=== PATIENT | male | born 1985 | race Caucasian/White ===

== ENCOUNTER 2016-09-02 07:48 | Day surgery (SDC) | payer OTHER ==
[~2016-09-02 07:48] MED LIST: Aloe Vera/Sodium Chloride Gel 14.1 GM Tube ONE; Lactated Ringers 1,000 ML IV SCH; Lidocaine 1% 50 ML MDV ONE; Lidocaine 2% 5 ML SDV ONE; Lidocaine 2% with EPINEPHrine 1:100,000 20 ML MDV ONE; Midazolam 1 MG/ML 2 ML SDV ONE; Oxymetazoline 0.05% Nasal Spray 15 ML Bottle ONE; Propofol 200 MG/20 ML SDV ONE; Rocuronium 10 MG/ML 10 ML Syringe ONE; Succinylcholine/Normal Saline 200 MG/10 ML Syringe ONE; fentaNYL 100 MCG/2 ML SDV ONE
--- NOTE | 2016-09-02 08:54 | PCM.PREANE ---
Preanesthetic Assessment - Anesthesia/Transfusion/Family Hx Anesthesia History: Prior Anesthesia Without Reaction Family History of Anesthesia Reaction: No Transfusion History: No Prior Transfusion(s) Intubation History: Unknown - Review of Systems General: No Symptoms Pulmonary: No Symptoms Cardiovascular: No Symptoms Gastrointestinal: No symptoms Neurological: No Symptoms Other: Reports: None - Physical Assessment O2 Sat by Pulse Oximetry: 95 Respiratory Rate: 16 Vital Signs: Last Vital Signs Temp 36.9 C 09/02/16 08:08 Pulse 58 L 09/02/16 08:08 Resp 16 09/02/16 08:08 BP 124/58 L 09/02/16 08:08 Pulse Ox 95 09/02/16 08:08 Height: 1.83 m Weight: 112.037 kg ASA Class: 2 Mental Status: Alert & Oriented x3 Airway Class: Mallampati = 2 Dentition: Reports: Normal Dentition Thyro-Mental Finger Breadths: 3 Mouth Opening Finger Breadths: 3 ROM/Head Extension: Full Lungs: Clear to auscultation, Normal respiratory effort Cardiovascular: Regular Rate, Regular Rhythm - Allergies Allergies/Adverse Reactions: Allergies Allergy/AdvReac Type Severity Reaction Status Date / Time No Known Allergies Allergy Verified 09/01/16 11:07 - Blood Blood Available: No - Anesthesia Plan Pre-Op Medication Ordered: None - Acknowledgements Anesthesia Type Planned: General Anesthesia Pt an Appropriate Candidate for the Planned Anesthesia: Yes Alternatives and Risks of Anesthesia Discussed w Pt/Guardian: Yes Pt/Guardian Understands and Agrees with Anesthesia Plan: Yes PreAnesthesia Questionnaire - Past Health History Medical/Surgical History: Denies Medical/Surgical History HEENT History: Reports: Other (see below) Cardiovascular History: Reports: None Respiratory History: Reports: None Gastrointestinal History: Reports: None Genitourinary History: Reports: None Musculoskeletal History: Reports: Back pain, chronic, Neck pain, chronic Neurological History: Reports: None Psychiatric History: Reports: None Endocrine/Metabolic History: Reports: Obesity/BMI 30+ Hematologic History: Reports: None Immunologic History: Reports: None Oncologic (Cancer) History: Reports: None Dermatologic History: Reports: None - Infectious Disease History Infectious Disease History: Reports: None - Past Surgical History Head Surgeries/Procedures: Reports: None HEENT Surgical History: Reports: Oral surgery Other HEENT Surgeries/Procedures: wisdom teeth Cardiovascular Surgical History: Reports: None Respiratory Surgical History: Reports: None GI Surgical History: Reports: None Female Surgical History: Reports: None Male Surgical History: Reports: None Endocrine Surgical History: Reports: None Neurological Surgical History: Reports: None Musculoskeletal Surgical History: Reports: Other (see below) Other Musculoskeletal Surgeries/Procedures:: excision of lipoma-right bicep Oncologic Surgical History: Reports: None - SUBSTANCE USE Smoking Status *Q: Current Some Day Smoker Tobacco Use Within Last Twelve Months: Smokeless Tobacco Second Hand Smoke Exposure: No Recreational Drug Use History: No - HOME MEDS Home Medications: Home Meds . [No Known Home Meds] 05/16/15 [History] - CURRENT (IN HOUSE) MEDS Current Meds: Current Medications Lactated Ringer's (Ringers, Lactated) 1,000 mls @ 125 mls/hr IV ASDIRECTED [facility] Last Admin: 09/02/16 08:12 Dose: 125 mls/hr Discontinued Medications Fentanyl (Sublimaze) Confirm Administered Dose 100 mcg .ROUTE .STK-MED ONE Stop: 09/02/16 07:26 Lidocaine (Xylocaine-Mpf 2%) Confirm Administered Dose 5 ml .ROUTE .STK-MED ONE Stop: 09/02/16 07:25 Lidocaine HCl (Xylocaine 1%) Confirm Administered Dose 50 ml .ROUTE .STK-MED ONE Stop: 09/02/16 06:48 Lidocaine/Epinephrine (Xylocaine 2% With Epinephrine 1:100,000) Confirm Administered Dose 20 ml .ROUTE .STK-MED ONE Stop: 09/02/16 06:48 Midazolam HCl (Versed 1 Mg/Ml) Confirm Administered Dose 2 mg .ROUTE .STK-MED ONE Stop: 09/02/16 07:26 Oxymetazoline HCl (Afrin Original 0.05% Nasal [place]) Confirm Administered Dose 15 ml .ROUTE .STK-MED ONE Stop: 09/02/16 06:48 Propofol (Diprivan 20 Ml) Confirm Administered Dose 200 mg .ROUTE .STK-MED ONE Stop: 09/02/16 07:26 Rocuronium [place] (Zemuron) Confirm Administered Dose 100 mg .ROUTE .STK-MED ONE Stop: 09/02/16 07:25 Sodium Chloride ([place] Saline Nasal Gel) Confirm Administered Dose 14.1 gm .ROUTE .STK-MED ONE Stop: 09/02/16 06:48 Succinylcholine Chloride (Succinylcholine In Ns Pf) Confirm Administered Dose 200 mg .ROUTE .[facility]-MED ONE Stop: 09/02/16 07:25
--- NOTE | 2016-09-02 08:57 | PCM.HPR ---
H & P Addendum review - H & P Addendum Review Date of Original H & P: 08/28/16 Date Reviewed: 09/02/16 Time Reviewed: 08:30 Patient was examined: No Changes
--- NOTE | 2016-09-02 10:30 | PCM.OPNOTE ---
- General Post-Op/Procedure Note Condition: Good Free Text/Narrative:: Diagnosis: Nasal obstruction, caudal nasal deformity Procedure: Nasal Septoplasty [CPT 12080]; columellar cartilage graft Surgeon: Zayra Tomlin MD Anesthesia: GA Anesthesiologist: Jerome Bean Date of procedure: 09/02/2016 Indications:Nasal obstruction, caudal nasal deformity Findings: L caudal dislocation of septum; L cartilage spur from dislocation of cartilage off the maxillary crest; vertical fracture lines in cartilage approx 1 cm behind the caudal edge; caudal edge - weak tip support and concavity to the L; memory in caudal cartilage ++, a vertical cartilage graft was placed to re enforce support; R deviated septum. Operation Details: An informed consent was obtained. A time out was performed and the patient was brought back to the operating room. Gen. anesthesia was administered with an endotracheal tube. Bilateral nasal cavities were packed with oxymetazoline 0.05 % soaked cottonoid pledgets. The patient was then prepped and draped in a standard fashion. The pledgets were then removed. Nasal septum was infiltrated with 2% lidocaine 1: 100, 000 epinephrine in a standard fashion-a total of 6 mls was used. A left sided tyson-transfixation incision was performed at the caudal edge of septum. A left sided mucoperichondrial flap was elevated- dissection was commenced with 2 mm osteotome and further carried out with combination of agus and [place] elevators. Posteriorly the flap was continued as a muco periosteal flap. Sharp and careful dissection was performed to lift the flaps off the left sided spur along the floor. Right-sided mucoperichondrial and mucoperiosteal flap were then elevated. A posterior chondrotomy was performed. A thin strip of cartilage forming the spur along the floor was removed using a septal knife coming upto the nasal spine so the appropriate height of cartilage was seen to be resting on the nasal spine. Also approximately 2 mm thin posterior vertical strip of cartilage adjacent to the bony septum was removed. Subsequent to this the nasal septum was positioned towards the midline however the caudal edge of cartilage was still protruding over to the left side. A thin vertical strip of cartilage along the anterior vertical fracture line was resected - this was 1.5 cm from the caudal edge of septum. A very thin sliver of cartilage- 1 mm along the anterior caudal edge of cartilage was removed. Subsequent to this the caudal edge was more appropriately repositioned. A vertical graft - approx 1.5 cm 3 mm was fashioned from the previously resected cartilage and this was sutured to the caudal edge of cartilage with 5.0 PDS to bollster support. The cartilage was also secured to the nasal spine with 5.0 PDS. A columellar pocket was created with a sharp iris scissor. The caudal edge of cartilage was sutured with 4.0 monocryl superiorly and inferiorly and brought out the skin in the interdomal area and the columella respectively. The tip support was firm and adequate. The mucoperichondrial flap and caudal edge of septum were secured with 4.0 vicryl; further flap sutures and mattress sutures were done with 4-0 plain gut on a jennifer needle. Bilateral Lou splints were inserted and held in place with 2.0 Prolene suture. The interdomal suture was secured to the skin with steri strips and the columellar was cut flush with the skin. Drip pad was applied. This concluded the procedure and the patient was turned over to the anesthesiologist for recovery. Specimens: none IV fluids: 1000 ml Blood loss: 5 ml Blood products: nil Disposition: PACU for recovery Follow up: In 1 week for removal of splints.
[2016-09-02] MEDS ORDERED: fentaNYL 250 MCG/5 ML SDV ONE (10:46)
[2016-09-02] MEDS ORDERED: Dexamethasone 4 MG/ML 5 ML MDV ONE (10:47)
[2016-09-02] MEDS ORDERED: Propofol 200 MG/20 ML SDV ONE (10:53)
[2016-09-02] MEDS ORDERED: Ondansetron 4 MG/2 ML SDV ONE (12:09)
[2016-09-02] MEDS ORDERED: Ketorolac 30 MG/ML SDV ONE (12:09)
[2016-09-02] MEDS ORDERED: Phenylephrine/Normal Saline 100 MCG/ML 10 ML Syringe ONE (12:20)
[2016-09-02] MEDS ORDERED: fentaNYL 100 MCG/2 ML SDV IVPUSH PRN (12:21)
[2016-09-02] MEDS ORDERED: Acetaminophen 1,000 MG in Premix Bag 1 BAG IV ONE (14:30)
[2016-09-02 15:35] VITALS: BP 112/60
== END 2016-09-02 15:45 | disposition home or self-care (01) ==
LOC: MW.SDS 07:48
PROVIDERS: ATTEND Otolaryngology
DX: J34.2 Deviated nasal septum (principal); J34.89 Other specified disorders of nose and nasal sinuses; F17.220 Nicotine dependence, chewing tobacco, uncomplicated; E78.00 Pure hypercholesterolemia, unspecified; Z98.890 Other specified postprocedural states
CPT/HCPCS: 30520; A9270; J1100; J1885; J2250; J2405; J3010; J7120; 00160; J2704